=== PATIENT | male | born 1980 | race Caucasian/White ===

== ENCOUNTER 2019-09-04 08:05 | Emergency (ER) | payer SELFPAY ==
[~2019-09-04] VITALS: Ht 162.6 cm; Wt 75.3 kg
[2019-09-04 08:10] VITALS: Ht 162.6 cm; Wt 75.3 kg
[2019-09-04 11:53] VITALS: BP 126/80
== END 2019-09-04 11:53 | disposition home or self-care (01) ==
LOC: ED 08:05
DX: M54.16 Radiculopathy, lumbar region (principal); F17.210 Nicotine dependence, cigarettes, uncomplicated
CPT/HCPCS: 99406; J1100; J1885